=== PATIENT | male | born 1980 | race Asian ===

== ENCOUNTER 2021-10-04 09:05 | Emergency (ER) | payer BC ==
[~2021-10-04] VITALS: Ht 170.2 cm; Wt 91.0 kg
[2021-10-04] MEDS ORDERED: TOPUD PO (09:28)
[2021-10-04] MEDS ORDERED: MORPHINE SULFATE 4 MG/ML CPJ (NOT FOR IM USE) IV STA (09:42)
[2021-10-04] MEDS ORDERED: MORPHINE SULFATE 4 MG/ML CPJ (NOT FOR IM USE) IV NR (11:21)
[2021-10-04] MEDS ORDERED: OXYC-100 PO (11:52)
[2021-10-04 11:58] LABS: HEMATOCRIT. 48.5 % (42.0-52.0); HEMOGLOBIN. 16.2 g/dL (14.0-18.0); MEAN CORPUSCULAR HEMOGLOBIN 29.7 pg (28.0-32.0); MEAN CORPUSCULAR VOLUME 88.8 fL (80.0-94.0); MEAN PLATELET VOLUME 7.4 fl (7.4-10.4); PLATELET 283 x1000/uL (130-400); RED BLOOD CELL COUNT 5.47 mill/uL (4.7-6.1); RED CELL DISTRIBUTION WIDTH 13.3 % (11.6-14.6)
[2021-10-04 12:05] LABS: PROTHROMBIN TIME 10.7 sec (9.6-11.0)
[2021-10-04 12:08] LABS: CHLORIDE 106 mEq/L (98-107)
[2021-10-04 12:38] LABS: CLARITY URINE CLEAR (CLEAR); COLOR URINE YELLOW (YELLOW); KETONES URINE NEGATIVE (NEGATIVE); LEUKOCYTE ESTERASE URINE NEGATIVE (NEGATIVE); NITRITE URINE NEGATIVE (NEGATIVE); OCCULT BLOOD URINE 2+ (NEGATIVE); PH URINE 5.5 (4.5-8.0); PROTEIN URINE NEGATIVE (NEGATIVE); SPECIFIC GRAVITY URINE 1.016 (1.005-1.030); UROBILINOGEN URINE 0.2 E.U./dL (0.2-1.0)
[2021-10-04] MEDS ORDERED: MORPHINE SULFATE 4 MG/ML CPJ (NOT FOR IM USE) IV ONE (13:00)
[2021-10-04 13:09] VITALS: BP 136/96
[2021-10-04 13:32] LABS: PLATELET ESTIMATE NORMAL
== END 2021-10-04 13:25 | disposition home or self-care (01) ==
LOC: ER 10:16
DX: N20.0 Calculus of kidney (principal)
CPT/HCPCS: 36415; 74176; 80053; 81003; 83690; 85025; 85610; 93005; 96374; 96376; 99285; J2270